=== PATIENT | female | born 1975 | race Caucasian/White ===

== ENCOUNTER → 2018-04-25 | Outpatient (CLI) | payer BC ==
[2018-04-25 13:15] LABS: BASO # 0.1 10^3/uL (0.0-0.2); EOS # 0.2 10^3/uL (0.0-0.50); EOS % 2.8 % (0.0-3.0); HEMATOCRIT 39.5 % (36.0-47.0); HEMOGLOBIN 12.9 g/dl (12.0-15.5); IMMATURE GRANULOCYTE % 0.3 % (0-3.0); LYMPH # 1.7 10^3/uL (1.5-4.5); LYMPH % 28.7 % (24.0-44.0); MEAN CORPUSCULAR HEMOGLOBIN 29.8 pg (27.0-33.0); MEAN CORPUSCULAR HGB CONC 32.7 g/dl (32.0-36.5); MEAN CORPUSCULAR VOLUME 91.2 fl (80.0-96.0); MONO # 0.3 10^3/uL (0.0-0.8); MONO % 5.9 % (0.0-5.0); NEUTROPHILS # 3.6 10^3/uL (1.8-7.7); NEUTROPHILS % 61.3 % (36.0-66.0); PLATELET COUNT, AUTOMATED 262 10^3/uL (150-450); RED BLOOD COUNT 4.33 10^6/uL (4.00-5.40); RED CELL DISTRIBUTION WIDTH 12.9 % (11.5-14.5); WHITE BLOOD COUNT 5.8 10^3/uL (4.0-10.0)
[2018-04-25 13:35] LABS: CHOLESTEROL LEVEL 166 MG/DL (<200); CHOLESTEROL RISK RATIO 3.608 (<5); GLUCOSE, FASTING 77 MG/DL (70-100); HDL CHOLESTEROL 46 MG/DL (>40); LDL CHOLESTEROL 107 MG/DL (<100); NON-HDL-C 120 MG/DL; TRIGLYCERIDES LEVEL 65 MG/DL (<150)
== END ==
LOC: M WUC 09:26
DX: E78.5 Hyperlipidemia, unspecified (principal)
CPT/HCPCS: 82947

== ENCOUNTER → 2018-05-23 | Outpatient (CLI) | payer BC ==
[2018-05-23 12:53] LABS: FERRITIN 55 NG/ML (8-252); IRON (FE) 65 UG/DL (50-170); PERCENT SATURATION 25.5 % (13.2-45.0); TOTAL IRON BINDING CAPACITY 255 UG/DL (250-450)
[2018-05-23 13:00] LABS: AMORPHOUS SEDIMENT SMALL (NEGATIVE); APPEARANCE, URINE CLEAR (CLEAR); BACTERIA, URINE AUTO NEGATIVE (NEGATIVE); BILIRUBIN, URINE AUTO NEGATIVE (NEGATIVE); BLOOD, URINE BLOOD NEGATIVE (NEGATIVE); COLOR, URINE YELLOW (YELLOW); GLUCOSE, URINE (UA) AUTO NEGATIVE (NEGATIVE); KETONE, URINE AUTO NEGATIVE (NEGATIVE); LEUKOCYTE ESTERASE, URINE AUTO NEGATIVE (NEGATIVE); NITRITE, URINE AUTO NEGATIVE (NEGATIVE); PROTEIN, URINE AUTO NEGATIVE (NEGATIVE); RBC, URINE AUTO 0 /HPF (0-3); SPECIFIC GRAVITY URINE AUTO 1.014 (1.002-1.035); SQUAMOUS EPITHELIAL CELL UR AU 0 /HPF (0-6); UROBILINOGEN, URINE AUTO 0.2 mg/dL (0.0-2.0); WBC, URINE AUTO 0 /HPF (0-3)
[2018-05-23 13:02] LABS: TOTAL 25(OH) VITAMIN D 27.8 NG/ML (30.0-100.0)
[2018-05-23 13:03] LABS: VITAMIN B12 LEVEL 461 PG/ML (247-911)
== END ==
LOC: M WUC 08:43
DX: R53.83 Other fatigue (principal); N30.00 Acute cystitis without hematuria
CPT/HCPCS: 83550

== ENCOUNTER → 2018-06-29 | Outpatient (REF) | payer BC | LOC: M SFHCLACO 15:43 | PROVIDERS: ATTEND Physician Assistant | DX: D18.01 Hemangioma of skin and subcutaneous tissue (principal) ==

== ENCOUNTER → 2018-11-19 | Outpatient (CLI) | payer BC ==
--- NOTE | 2018-11-24 09:28 | REPMRS ---
Patient History The patient states she has not had a clinical breast exam in over a year. Patient has history of cervical cancer at age 38. No known family history of cancer. Digital Woman Screen Mammo: November 19, 2018 - Exam #: [id number] Bilateral CC and MLO view(s) were taken. Technologist: Essie Khan, Technologist Prior study comparison: 2017, bilateral digital mammo screening bilat, performed at [facility]. June 15, 2016, bilateral digital woman screen mammo, performed at [facility]. FINDINGS: There are scattered fibroglandular densities. There has been no change in the appearance of the mammogram from the prior studies. There is a mild amount of scattered fibroglandular density which is fairly symmetric. There is no interval development of dominant mass, architectural distortion, or clustered microcalcification suggestive of malignancy. 3-D tomosynthesis shows no additional findings. Assessment: BI-RADS/ACR category 1 mammogram. Negative Mammogram. Recommendation Routine screening mammogram of both breasts in 1 year (for women over age 40). This patient's Lifetime Breast Cancer RIsk is estimated at 8.4 %. This mammogram was interpreted with the aid of an FDA-approved computer-aided dectection system. Electronically Signed By: Quinten Bailon MD 11/24/18 0950
== END ==
LOC: M WHC 10:22
PROVIDERS: ATTEND Physician Assistant
DX: Z12.31 Encounter for screening mammogram for malignant neoplasm of breast (principal); Z85.40 Personal history of malignant neoplasm of unspecified female genital organ

== ENCOUNTER → 2019-05-16 | Outpatient (CLI) | payer BC ==
[2019-05-16 13:12] LABS: CHOLESTEROL RISK RATIO 4.075 (<5)
== END ==
LOC: M WUC 09:09
PROVIDERS: ATTEND Physician Assistant
DX: Z02.1 Encounter for pre-employment examination (principal)

== ENCOUNTER 2020-07-15 06:54 | Emergency (ER) | payer OTHER ==
[~2020-07-15] VITALS: Ht 167.6 cm; Wt 72.7 kg
[2020-07-15] MEDS ORDERED: ZOFR4TAB16 PO (07:11)
[2020-07-15] MEDS ORDERED: COQ-100C5 PO (07:11)
[2020-07-15] MEDS ORDERED: CBD OIL (07:11)
[2020-07-15] MEDS ORDERED: BUPR10DI3 TOP (07:11)
[2020-07-15] MEDS ORDERED: VITA100T59 PO (07:11)
[2020-07-15] MEDS ORDERED: FISH1000 PO (07:11)
[2020-07-15] MEDS ORDERED: TOPI50TA9 PO (07:11)
[2020-07-15] MEDS ORDERED: RA B1TAB7 PO (07:11)
[2020-07-15] MEDS ORDERED: SUMA100T2 PO (07:11)
[2020-07-15] MEDS ORDERED: ACET-838 PO (07:11)
[2020-07-15] MEDS ORDERED: TOPA100T12 PO (07:11)
[2020-07-15] MEDS ORDERED: METOCLOPRAMIDE INJ 10MG/2ML VIAL (J2765 PER 1) As Ordered ONE (07:29)
[2020-07-15] MEDS ORDERED: METOCLOPRAMIDE INJ 10MG/2ML VIAL (J2765 PER 1) IV ONE (07:30)
[2020-07-15] MEDS ORDERED: NS 1,000 ML IV ONE (07:30)
[2020-07-15] MEDS ORDERED: ONDANSETRON 4MG/2ML VIAL IV ONE (07:30)
--- NOTE | 2020-07-15 08:00 | REP ---
INDICATION: seizure. COMPARISON: None. TECHNIQUE: Helical scanning is acquired. 5 mm axial images were reformatted. Coronal MPR images were generated. FINDINGS: Bone window settings demonstrate an intact bony calvarium. There is no evidence of skull fracture or incidental bony calvarial lesion. The visualized paranasal sinuses appear clear. No intraorbital abnormality is seen. On soft tissue window setting images; the lateral, third, and fourth ventricles are normal in size and position. Sage-white differentiation pattern is normal above and below the tentorium. There are is no evidence of intracranial hemorrhage. No mass, edema, infarction, or midline shift is seen. No extra-axial fluid collection is appreciated. IMPRESSION: Negative noncontrast head CT. <Electronically signed by Quinten Bailon > 07/15/20 [id number]
[2020-07-15 08:12] LABS: BASO % 0.6 % (0.0-1.0); EOS # 0.1 10^3/uL (0.0-0.5); EOS % 1.2 % (0.0-3.0); HEMATOCRIT 38.7 % (36.0-47.0); HEMOGLOBIN 12.3 g/dl (12.0-15.5); LYMPH # 1.5 10^3/uL (1.5-5.0); LYMPH % 23.5 % (24.0-44.0); MEAN CORPUSCULAR HEMOGLOBIN 28.9 pg (27.0-33.0); MEAN CORPUSCULAR HGB CONC 31.8 g/dl (32.0-36.5); MEAN CORPUSCULAR VOLUME 91.1 fl (80.0-96.0); MONO # 0.3 10^3/uL (0.0-0.8); MONO % 4.1 % (0.0-5.0); NEUTROPHILS # 4.6 10^3/uL (1.5-8.5); PLATELET COUNT, AUTOMATED 227 10^3/uL (150-450); RED BLOOD COUNT 4.25 10^6/uL (4.00-5.40); WHITE BLOOD COUNT 6.5 10^3/uL (4.0-10.0)
[2020-07-15 08:42] LABS: ALBUMIN 3.4 GM/DL (3.2-5.2); ALT/SGPT 11 U/L (12-78); BILIRUBIN,DIRECT < 0.1 MG/DL (0.0-0.2); BILIRUBIN,TOTAL 0.3 MG/DL (0.2-1.0); BLOOD UREA NITROGEN 13 MG/DL (7-18); CALCIUM LEVEL 7.9 MG/DL (8.5-10.1); CARBON DIOXIDE LEVEL 22 MEQ/L (21-32); CHLORIDE LEVEL 112 MEQ/L (98-107); CK-MB VALUE MASS < 1.0 NG/ML (<3.6); CPK CREATINE PHOSPHOKINASE 94 U/L (26-192); CREATININE FOR GFR 0.65 MG/DL (0.55-1.30); ETHYL ALCOHOL (ETHANOL) 0.004 % (0.000-0.010); GLOMERULAR FILTRATION RATE > 60.0 (>58); GLUCOSE, FASTING 118 MG/DL (70-100); MB/CK RELATIVE INDEX 1.06 (< OR =4); POTASSIUM SERUM 3.8 MEQ/L (3.5-5.1); SODIUM LEVEL 142 MEQ/L (136-145); TOTAL PROTEIN 5.7 GM/DL (6.4-8.2); TROPONIN I < 0.02 NG/ML (< 0.10)
[2020-07-15 08:59] LABS: AMPHETAMINES LEVEL URINE NEGATIVE (NEGATIVE); BARBITURATES URINE NEGATIVE (NEGATIVE); BENZODIAZEPINES URINE NEGATIVE (NEGATIVE); CANNABINOIDS URINE POSITIVE (NEGATIVE); COCAINE METABOLITE URINE NEGATIVE (NEGATIVE); METHADONE URINE NEGATIVE (NEGATIVE); OPIATES URINE NEGATIVE (NEGATIVE); PHENCYCLIDINE URINE NEGATIVE (NEGATIVE)
[2020-07-15 09:27] LABS: HCG, SERUM QUALITATIVE NEGATIVE (NEGATIVE)
[2020-07-15 09:31] LABS: OSMOLALITY SERUM 293 MOSM/KG (275-295)
--- NOTE | 2020-07-15 09:56 | REP ---
INDICATION: Altered Mental Status COMPARISON: None. TECHNIQUE: Portable AP view of the chest FINDINGS: The mediastinum and cardiac silhouette are within normal limits for portable technique. The lung dixon are clear without acute consolidation, effusion, or pneumothorax. Skeletal structures are intact. IMPRESSION: No acute cardiopulmonary process appreciated. <Electronically signed by Lazaro Dillon > 07/15/20 0959
[2020-07-15 13:01] VITALS: BP 123/76
--- NOTE | 2020-07-16 13:27 | ECGEPIP ---
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
== END 2020-07-15 13:15 | disposition home or self-care (01) ==
LOC: M ED 06:54
DX: R56.9 Unspecified convulsions (principal); T50.995A Adverse effect of other drugs, medicaments and biological substances, initial encounter; X58.XXXA Exposure to other specified factors, initial encounter; Y92.89 Other specified places as the place of occurrence of the external cause; Z79.899 Other long term (current) drug therapy; Z88.8 Allergy status to other drugs, medicaments and biological substances; Z87.891 Personal history of nicotine dependence
CPT/HCPCS: 70450; 71045; 80048; 80076; 80307; 82550; 82553; 83605; 83930; 84443; 84484; 84703; 85025; 93005; 93041; 94760; 96361; 96374; 96375; 99285; G0480; J2765

== ENCOUNTER → 2020-11-25 | Outpatient (REF) | payer OTHER ==
[~2020-11-25] MED LIST: ACET32TAB PO; BUPR10DI3 TOP; CBD OIL; COQ-100C5 PO; FISH1000 PO; RA B1TAB7 PO; SUMA100T2 PO; TOPA100T12 PO; TOPI50TA9 PO; VITA100T59 PO; ZOFR4TAB16 PO
[2020-11-25 13:08] LABS: HEMATOCRIT 43.4 % (36.0-47.0); HEMOGLOBIN 13.9 g/dl (12.0-15.5); MEAN CORPUSCULAR HEMOGLOBIN 29.6 pg (27.0-33.0); MEAN CORPUSCULAR VOLUME 92.5 fl (80.0-96.0); PLATELET COUNT, AUTOMATED 290 10^3/uL (150-450); RED BLOOD COUNT 4.69 10^6/uL (4.00-5.40); WHITE BLOOD COUNT 5.4 10^3/uL (4.0-10.0)
[2020-11-25 14:20] LABS: BLOOD UREA NITROGEN 11 MG/DL (7-18); CALCIUM LEVEL 9.4 MG/DL (8.5-10.1); CARBON DIOXIDE LEVEL 25 MEQ/L (21-32); CHLORIDE LEVEL 109 MEQ/L (98-107); CREATININE FOR GFR 0.54 MG/DL (0.55-1.30); GLOMERULAR FILTRATION RATE > 60.0 (>58); GLUCOSE, FASTING 69 MG/DL (70-100); POTASSIUM SERUM 4.4 MEQ/L (3.5-5.1); SODIUM LEVEL 142 MEQ/L (136-145); TOTAL 25(OH) VITAMIN D 25.2 NG/ML (30.0-100.0)
== END ==
LOC: M SFHCADAM 09:40
PROVIDERS: ATTEND Physician Assistant
DX: G43.109 Migraine with aura, not intractable, without status migrainosus (principal); E55.9 Vitamin D deficiency, unspecified

== ENCOUNTER → 2021-01-29 | Outpatient (CLI) | payer OTHER ==
--- NOTE | 2021-01-29 14:22 | REPMRS ---
Patient History The patient states she has not had a clinical breast exam in over a year. No known family history of cancer. Patient states no breast complaints today. Patient has signed MRS History Sheet. Digital Woman Screen Mammo: January 29, 2021 - Exam #: [id number] Bilateral CC and MLO view(s) were taken. Technologist: Essie Khan, Technologist Prior study comparison: November 19, 2018, bilateral digital woman screen mammo performed at [facility]. 2018, bilateral digital mammo screening bilat, performed at [facility]. FINDINGS: There are scattered fibroglandular densities. Screening. Digital screening (2D) mammography was performed bilaterally in the CC and MLO projections. Additionally, breast tomosynthesis (3D mammography) was performed bilaterally in the CC and MLO projections. Todays exam was compared to the prior exam/exams. By history, the patient has no complaints of a palpable breast abnormality or other significant breast complaints. The breasts are unchanged in size and shape. There are no jay-soft tissue densities or spiculated masses. There is no internal architectural distortion. There are no suspicious jay-calcific clusters. Skin thickening or nipple retraction is not present. IMPRESSION: BI-RADS Category 1-negative. There is no evidence of malignant alteration of the breasts. Followup examination recommended in one year. The Volpara volumetric breast density category is B, there are scattered areas of fibroglandular densities. This mammogram was read with the assistance of [employer],an FDA approved computer aided detection system for mammography. The lifetime Tyrer-Cuzick score is 8.1 % Negative x-ray reports should not delay surgical consultation if a dominant or clinically suspicious mass is present. Not all breast cancers can be identified by mammography. Therefore, we recommend that you continue to perform regular breast self-examination and physical examination and then promptly contact your physician of any concerns or changes. Adenosis and dense breasts may obscure an underlying neoplasm. Assessment: BI-RADS/ACR category 1 mammogram. Negative Mammogram. Recommendation Routine screening mammogram of both breasts in 1 year. Electronically Signed By: Mohinder Holguin DO 01/29/21 [id number]
== END ==
LOC: M WHC 13:43
PROVIDERS: ATTEND Physician Assistant
DX: Z12.31 Encounter for screening mammogram for malignant neoplasm of breast (principal)

== ENCOUNTER 2021-02-20 22:20 | Emergency (ER) | payer OTHER ==
[2021-02-20 22:52] LABS: EOS # 0.1 10^3/uL (0.0-0.5); EOS % 1.9 % (0.0-3.0); HEMATOCRIT 39.4 % (36.0-47.0); HEMOGLOBIN 13.2 g/dl (12.0-15.5); LYMPH # 1.4 10^3/uL (1.5-5.0); LYMPH % 33.5 % (24.0-44.0); MEAN CORPUSCULAR HEMOGLOBIN 29.8 pg (27.0-33.0); MEAN CORPUSCULAR HGB CONC 33.5 g/dl (32.0-36.5); MEAN CORPUSCULAR VOLUME 88.9 fl (80.0-96.0); MONO # 0.2 10^3/uL (0.0-0.8); MONO % 4.5 % (2.0-8.0); NEUTROPHILS # 2.5 10^3/uL (1.5-8.5); NEUTROPHILS % 58.6 % (36.0-66.0); PLATELET COUNT, AUTOMATED 257 10^3/uL (150-450); RED BLOOD COUNT 4.43 10^6/uL (4.00-5.40); WHITE BLOOD COUNT 4.2 10^3/uL (4.0-10.0)
[2021-02-20 23:16] LABS: ALBUMIN 3.7 GM/DL (3.2-5.2); ALT/SGPT 18 U/L (12-78); AMYLASE 56 U/L (25-115); BILIRUBIN,DIRECT < 0.1 MG/DL (0.0-0.2); BILIRUBIN,TOTAL 0.3 MG/DL (0.2-1.0); LIPASE 86 U/L (73-393); TOTAL PROTEIN 6.5 GM/DL (6.4-8.2)
[2021-02-20] MEDS ORDERED: MAG SULF 1GM/100ML (MAG RUN) 1 GM in IV 1 EA IV ONE (23:45)
[2021-02-20] MEDS ORDERED: POTASSIUM CHLORIDE 10 MEQ SR TABLET PO ONE (23:45)
[2021-02-21 00:19] LABS: MAGNESIUM LEVEL 2.2 MG/DL (1.8-2.4)
[2021-02-21] MEDS: POTASSIUM CHLORIDE 10 MEQ SR TABLET PO SCH ×3 (00:57→02:23)
[2021-02-21] MEDS ORDERED: MAG SULF 1GM/100ML (MAG RUN) 1 GM in IV 1 EA IV ONE (01:00)
[2021-02-21 01:45] VITALS: BP 129/78
[2021-02-21] MEDS ORDERED: RIZATRIPTAN MLT 10 MG TAB PO PRN (01:45)
[2021-02-21] MEDS ORDERED: ONDANSETRON 4MG/2ML VIAL IV ONE (01:45)
[2021-02-21] MEDS ORDERED: POTA1TAB14 PO (02:01)
== END 2021-02-21 03:09 | disposition home or self-care (01) ==
LOC: M ED 22:20
DX: E87.6 Hypokalemia (principal); G43.909 Migraine, unspecified, not intractable, without status migrainosus; K52.9 Noninfective gastroenteritis and colitis, unspecified; I10 Essential (primary) hypertension; K21.9 Gastro-esophageal reflux disease without esophagitis; Z88.8 Allergy status to other drugs, medicaments and biological substances; Z79.899 Other long term (current) drug therapy
CPT/HCPCS: 80047; 80076; 82150; 83605; 83690; 83735; 85025; 93041; 96365; 96375; 99285; J2405; J3475

== ENCOUNTER → 2021-02-23 | Outpatient (REF) | payer OTHER ==
[~2021-02-23] MED LIST changes: +POTA1TAB14 PO
[2021-02-23 17:45] LABS: BLOOD UREA NITROGEN 10 MG/DL (7-18); CALCIUM LEVEL 8.6 MG/DL (8.5-10.1); CARBON DIOXIDE LEVEL 28 MEQ/L (21-32); CHLORIDE LEVEL 109 MEQ/L (98-107); CREATININE FOR GFR 0.61 MG/DL (0.55-1.30); GLOMERULAR FILTRATION RATE > 60.0 (>58); GLUCOSE, FASTING 74 MG/DL (70-100); POTASSIUM SERUM 4.2 MEQ/L (3.5-5.1); SODIUM LEVEL 143 MEQ/L (136-145)
== END ==
LOC: M SFHCADAM 14:57
PROVIDERS: ATTEND Physician Assistant
DX: E87.6 Hypokalemia (principal)

== ENCOUNTER → 2021-05-12 | Outpatient (CLI) | payer OTHER, MEDICARE ==
--- NOTE | 2021-05-13 14:49 | REP ---
INDICATION: HEPATIC LESION. COMPARISON: MRI lumbar spine 04/07/2021. TECHNIQUE: Real-time sonographic evaluation of right upper quadrant performed. FINDINGS: The gallbladder demonstrates no evidence of intraluminal sludge or calculi, wall thickening or pericholecystic fluid. There is no intrahepatic or extrahepatic biliary dilatation, common bile duct measures 4 mm in maximum diameter. At the site of the hyperintense nodule on T2 weighted images of the lumbar spine there is a 1.1 cm cyst. 2 cysts are also seen more superiorly near the confluence of the hepatic veins 1.3 x 1.4 x 1.2 cm and adjacent to the right hepatic vein, 1.1 cm in diameter. The pancreas demonstrates homogeneous echotexture with no gross mass. The right kidney demonstrates no hydronephrosis, with a normal size of 12.1 cm in length. No free fluid is seen. IMPRESSION: Three liver cysts are identified, 1 of which corresponds to the abnormality seen on the prior lumbar spine MRI. <Electronically signed by Jagdeep Sage > 05/13/21 [id number]
== END ==
LOC: M RAD 08:41
PROVIDERS: ATTEND Physician Assistant
DX: K76.9 Liver disease, unspecified (principal)

== ENCOUNTER → 2021-05-21 | Outpatient (REF) | payer OTHER, MEDICARE ==
[2021-05-21 17:37] LABS: APPEARANCE, URINE CLEAR (CLEAR); BACTERIA, URINE AUTO 1+ (NEGATIVE); BILIRUBIN, URINE AUTO NEGATIVE (NEGATIVE); BLOOD, URINE BLOOD NEGATIVE (NEGATIVE); COLOR, URINE STRAW (YELLOW); GLUCOSE, URINE (UA) AUTO NEGATIVE (NEGATIVE); KETONE, URINE AUTO NEGATIVE (NEGATIVE); LEUKOCYTE ESTERASE, URINE AUTO NEGATIVE (NEGATIVE); NITRITE, URINE AUTO NEGATIVE (NEGATIVE); PROTEIN, URINE AUTO NEGATIVE (NEGATIVE); RBC, URINE AUTO 0 /HPF (0-3); SPECIFIC GRAVITY URINE AUTO 1.002 (1.002-1.035); SQUAMOUS EPITHELIAL CELL UR AU 1 /HPF (0-6); UROBILINOGEN, URINE AUTO 0.2 mg/dL (0.0-2.0); WBC, URINE AUTO 0 /HPF (0-3)
== END ==
LOC: M LAB REF 16:35
PROVIDERS: ATTEND Obstetrics & Gynecology
DX: N39.41 Urge incontinence (principal); N39.0 Urinary tract infection, site not specified

== ENCOUNTER → 2021-05-28 | Outpatient (REF) | payer OTHER, MEDICARE | LOC: M LAB REF 13:59 | PROVIDERS: ATTEND Dermatology | DX: L72.0 Epidermal cyst (principal) ==

== ENCOUNTER → 2021-06-19 | Outpatient (CLI) | payer OTHER, MEDICARE ==
[~2021-06-19] MED LIST changes: +FREM225A SC; +GNP250TA9 PO; +HAIR1CHW2 PO; +RA T500C2 PO; +VIBE75TA PO; +[UNRECOGNIZED DRUG - REMARK] PA
== END ==
LOC: M LABSMTC 10:13
PROVIDERS: ATTEND Anesthesiology
DX: Z01.818 Encounter for other preprocedural examination (principal); Z11.52 Encounter for screening for COVID-19

== ENCOUNTER 2021-06-24 09:25 | Day surgery (SDC) | payer OTHER, MEDICARE ==
[~2021-06-24] VITALS: Ht 167.6 cm; Wt 84.3 kg
[~2021-06-24 09:25] MED LIST changes: +LIDOCAINE 1% MDV 20ML VIAL SQ PRN; +LR 1,000 ML IV ONE
[2021-06-24] MEDS ORDERED: propofoL 200 MG/20 ML VIAL As Ordered ONE (11:05)
[2021-06-24] MEDS ORDERED: dexameTHASONE 4 MG/ML 1ML VIAL (J1100 PER 1MG) As Ordered ONE (11:05)
[2021-06-24] MEDS ORDERED: KETOROLAC 60MG 2ML VIAL As Ordered ONE (11:05)
[2021-06-24] MEDS ORDERED: LIDOCAINE 2% 100MG/5ML SDV (FOR ANES.) As Ordered ONE (11:05)
[2021-06-24] MEDS ORDERED: MIDAZOLAM INJ 2MG/2ML VIAL (J2250 PER 1MG) As Ordered ONE (11:05)
[2021-06-24] MEDS ORDERED: ONDANSETRON 4MG/2ML VIAL As Ordered ONE (11:05)
[2021-06-24] MEDS ORDERED: fentaNYL 100 MCG/2 ML INJECTION As Ordered ONE (11:05)
[2021-06-24] MEDS ORDERED: GLYCOPYRROLATE INJ 0.2 MG/ML 2 ML VIAL As Ordered ONE (11:06)
[2021-06-24] MEDS ORDERED: PHENYLephrine 500MCG 5ML (100MCG/ML) SYRINGE As Ordered ONE (11:12)
[2021-06-24] MEDS ORDERED: fentaNYL 100 MCG/2 ML INJECTION IV PRN (11:55)
[2021-06-24] MEDS ORDERED: LR 1,000 ML IV SCH ×2 (11:55→12:00)
[2021-06-24] MEDS ORDERED: oxyCODONE 5MG TAB PO PRN (11:55)
[2021-06-24] MEDS ORDERED: ONDANSETRON 4MG/2ML VIAL IV PRN (11:55)
[2021-06-24] MEDS ORDERED: METOCLOPRAMIDE INJ 10MG/2ML VIAL (J2765 PER 1) IV PRN (11:55)
[2021-06-24] MEDS ORDERED: IBUPROFEN 600MG TAB PO PRN (12:00)
[2021-06-24 12:34] VITALS: BP 122/64
== END 2021-06-24 13:00 | disposition home or self-care (01) ==
LOC: M SDC 09:25
PROVIDERS: ATTEND Obstetrics & Gynecology
DX: R39.89 Other symptoms and signs involving the genitourinary system (principal); Z87.440 Personal history of urinary (tract) infections; Z87.448 Personal history of other diseases of urinary system; R01.1 Cardiac murmur, unspecified; I49.8 Other specified cardiac arrhythmias; K58.9 Irritable bowel syndrome, unspecified; Z98.890 Other specified postprocedural states; F41.9 Anxiety disorder, unspecified; R56.9 Unspecified convulsions; R32 Unspecified urinary incontinence; M54.9 Dorsalgia, unspecified; Z88.8 Allergy status to other drugs, medicaments and biological substances; Z88.5 Allergy status to narcotic agent; Z79.899 Other long term (current) drug therapy
CPT/HCPCS: 52000; J1100; J1885; J2250; J2370; J2405; J3010

== ENCOUNTER → 2021-11-11 | Outpatient (CLI) | payer OTHER, MEDICARE ==
[~2021-11-11] MED LIST changes: -LIDOCAINE 1% MDV 20ML VIAL SQ PRN; -LR 1,000 ML IV ONE
[2021-11-11 12:46] LABS: HEMATOCRIT 41.7 % (36.0-47.0); MEAN CORPUSCULAR HEMOGLOBIN 29.9 pg (27.0-33.0); MEAN CORPUSCULAR HGB CONC 33.6 g/dl (32.0-36.5); MEAN CORPUSCULAR VOLUME 89.1 fl (80.0-96.0); PLATELET COUNT, AUTOMATED 279 10^3/uL (150-450); RED BLOOD COUNT 4.68 10^6/uL (4.00-5.40); WHITE BLOOD COUNT 6.1 10^3/uL (4.0-10.0)
[2021-11-11 12:55] LABS: INR 0.98; PROTHROMBIN TIME 13.4 SECONDS (12.7-14.5)
[2021-11-11 12:56] LABS: PARTIAL THROMBOPLASTIN TIME 30.7 SECONDS (25.9-37.0)
[2021-11-11 13:13] LABS: ALBUMIN 3.9 GM/DL (3.2-5.2); ALT/SGPT 27 U/L (12-78); BILIRUBIN,TOTAL 0.3 MG/DL (0.2-1.0); BLOOD UREA NITROGEN 13 MG/DL (7-18); CALCIUM LEVEL 9.5 MG/DL (8.5-10.1); CARBON DIOXIDE LEVEL 25 MEQ/L (21-32); CHLORIDE LEVEL 109 MEQ/L (98-107); CREATININE FOR GFR 0.56 MG/DL (0.55-1.30); GLOMERULAR FILTRATION RATE > 60.0 (>58); GLUCOSE, FASTING 82 MG/DL (70-100); POTASSIUM SERUM 4.2 MEQ/L (3.5-5.1); SODIUM LEVEL 140 MEQ/L (136-145); TOTAL PROTEIN 6.7 GM/DL (6.4-8.2)
== END ==
LOC: M WUC 10:07
PROVIDERS: ATTEND Physician Assistant
DX: R04.0 Epistaxis (principal)

== ENCOUNTER → 2022-01-12 | Outpatient (CLI) | payer MEDICARE, BC ==
[2022-01-12 13:10] LABS: BLOOD UREA NITROGEN 13 MG/DL (7-18); CARBON DIOXIDE LEVEL 23 MEQ/L (21-32); CHLORIDE LEVEL 111 MEQ/L (98-107); CREATININE FOR GFR 0.62 MG/DL (0.55-1.30); GLOMERULAR FILTRATION RATE > 60.0 (>58); GLUCOSE, FASTING 87 MG/DL (70-100); MAGNESIUM LEVEL 2.2 MG/DL (1.8-2.4); POTASSIUM SERUM 4.1 MEQ/L (3.5-5.1); SODIUM LEVEL 139 MEQ/L (136-145)
== END ==
LOC: M WUC 09:10
PROVIDERS: ATTEND Physician Assistant
DX: R00.2 Palpitations (principal)

== ENCOUNTER → 2022-02-18 | Outpatient (CLI) | payer MEDICARE, BC ==
[2022-02-18 11:36] LABS: BASO % 0.6 % (0.0-1.0); EOS # 0.2 10^3/uL (0.0-0.5); EOS % 2.5 % (0.0-3.0); HEMATOCRIT 43.7 % (36.0-47.0); HEMOGLOBIN 14.2 g/dl (12.0-15.5); LYMPH # 1.8 10^3/uL (1.5-5.0); LYMPH % 27.2 % (24.0-44.0); MEAN CORPUSCULAR HEMOGLOBIN 29.3 pg (27.0-33.0); MEAN CORPUSCULAR HGB CONC 32.5 g/dl (32.0-36.5); MEAN CORPUSCULAR VOLUME 90.1 fl (80.0-96.0); MONO # 0.3 10^3/uL (0.0-0.8); MONO % 5.2 % (2.0-8.0); NEUTROPHILS # 4.2 10^3/uL (1.5-8.5); NEUTROPHILS % 64.2 % (36.0-66.0); PLATELET COUNT, AUTOMATED 284 10^3/uL (150-450); RED BLOOD COUNT 4.85 10^6/uL (4.00-5.40); WHITE BLOOD COUNT 6.5 10^3/uL (4.0-10.0)
[2022-02-18 12:03] LABS: HEMOGLOBIN A1c 5.3 %
[2022-02-18 13:28] LABS: ALBUMIN 3.6 GM/DL (3.2-5.2); ALT/SGPT 20 U/L (12-78); BILIRUBIN,TOTAL 0.4 MG/DL (0.2-1.0); BLOOD UREA NITROGEN 12 MG/DL (7-18); CALCIUM LEVEL 8.8 MG/DL (8.5-10.1); CARBON DIOXIDE LEVEL 28 MEQ/L (21-32); CHLORIDE LEVEL 108 MEQ/L (98-107); CHOLESTEROL LEVEL 204 MG/DL (<200); CHOLESTEROL RISK RATIO 4.975 (<5); CREATININE FOR GFR 0.67 MG/DL (0.55-1.30); FREE T4 0.84 NG/DL (0.76-1.46); GLOMERULAR FILTRATION RATE > 60.0 (>58); GLUCOSE, FASTING 83 MG/DL (70-100); HDL CHOLESTEROL 41 MG/DL (>40); LDL CHOLESTEROL 145 MG/DL (<100); NON-HDL-C 163 MG/DL; POTASSIUM SERUM 4.5 MEQ/L (3.5-5.1); SODIUM LEVEL 140 MEQ/L (136-145); TOTAL PROTEIN 6.8 GM/DL (6.4-8.2); TRIGLYCERIDES LEVEL 92 MG/DL (<150)
== END ==
LOC: M WUC 08:05
PROVIDERS: ATTEND Family Medicine
DX: Z00.00 Encounter for general adult medical examination without abnormal findings (principal); R79.89 Other specified abnormal findings of blood chemistry; E07.9 Disorder of thyroid, unspecified

== ENCOUNTER → 2022-03-03 | Outpatient (CLI) | payer BC, MEDICARE | LOC: M WHC 06:56 | PROVIDERS: ATTEND Family Medicine | DX: Z12.31 Encounter for screening mammogram for malignant neoplasm of breast (principal) ==

== ENCOUNTER → 2022-05-05 | Outpatient (REF) | payer BC, MEDICARE ==
[2022-05-05 14:34] LABS: FREE T4 0.92 NG/DL (0.76-1.46); THYROID STIMULATING HORMONE 2.27 uIU/ML (0.358-3.740)
== END ==
LOC: M SFHCADAM 08:06
PROVIDERS: ATTEND Family Medicine
DX: F41.8 Other specified anxiety disorders (principal)

== ENCOUNTER → 2022-11-15 | Outpatient (REF) | payer BC, MEDICARE ==
[~2022-11-15] MED LIST changes: +POTA-298 PO; -POTA1TAB14 PO; +TOPI-254 PO; -TOPI50TA9 PO
[2022-11-15 14:11] LABS: FREE T4 0.95 NG/DL (0.89-1.76); THYROID STIMULATING HORMONE 2.377 uIU/ML (0.55-4.78)
== END ==
LOC: M SFHCADAM 11:01
PROVIDERS: ATTEND Family Medicine
DX: F41.9 Anxiety disorder, unspecified (principal)

== ENCOUNTER → 2023-08-23 | Outpatient (CLI) | payer BC, MEDICARE ==
[~2023-08-23] MED LIST changes: +TOPI-21 PO; -TOPI-254 PO
== END ==
LOC: M WHC 07:10
PROVIDERS: ATTEND Nurse Practitioner Family
DX: Z12.31 Encounter for screening mammogram for malignant neoplasm of breast (principal)

== ENCOUNTER → 2023-08-23 | Outpatient (REF) | payer BC, MEDICARE | LOC: M SFHCWAGY 13:18 | PROVIDERS: ATTEND Nurse Practitioner Family | DX: Z12.4 Encounter for screening for malignant neoplasm of cervix (principal) ==

== ENCOUNTER 2023-11-22 08:03 | Day surgery (SDC) | payer BC, MEDICARE ==
[~2023-11-22] VITALS: Ht 167.6 cm; Wt 77.4 kg
[~2023-11-22 08:03] MED LIST changes: +CITA20TA7 PO; +FOLI400T5 PO; +LEVO25TA5 PO; +MAGN400C PO; +OMEG12004 PO; +PROBCAP2 PO; +VITA500075 PO
[2023-11-22] MEDS: NS 1,000 ML IV ONE (08:19)
[2023-11-22 10:12] VITALS: BP 125/71; TEMP 97.3; O2SAT 98
== END 2023-11-22 10:15 | disposition home or self-care (01) ==
LOC: M OPP 08:03
PROVIDERS: ATTEND Surgery
DX: Z12.11 Encounter for screening for malignant neoplasm of colon (principal); Z12.12 Encounter for screening for malignant neoplasm of rectum; K64.1 Second degree hemorrhoids; Q43.8 Other specified congenital malformations of intestine; E03.9 Hypothyroidism, unspecified; K58.9 Irritable bowel syndrome, unspecified; K76.89 Other specified diseases of liver; Z90.49 Acquired absence of other specified parts of digestive tract; Z79.890 Hormone replacement therapy; Z79.899 Other long term (current) drug therapy; Z88.8 Allergy status to other drugs, medicaments and biological substances; Z87.891 Personal history of nicotine dependence; Z90.710 Acquired absence of both cervix and uterus

== ENCOUNTER → 2024-06-18 | Outpatient (REF) | payer BC, MEDICARE ==
[2024-06-18 13:42] LABS: BASO # 0.1 10^3/uL (0.0-0.2); BASO % 0.9 % (0.0-1.0); EOS # 0.2 10^3/uL (0.0-0.5); EOS % 3.2 % (0.0-3.0); HEMATOCRIT 45.6 % (36.0-47.0); HEMOGLOBIN 14.9 g/dl (12.0-15.5); LYMPH # 1.6 10^3/uL (1.5-5.0); LYMPH % 24.6 % (24.0-44.0); MEAN CORPUSCULAR HEMOGLOBIN 29.9 pg (27.0-33.0); MEAN CORPUSCULAR HGB CONC 32.7 g/dl (32.0-36.5); MEAN CORPUSCULAR VOLUME 91.6 fl (80.0-96.0); MONO # 0.5 10^3/uL (0.0-0.8); MONO % 7.4 % (2.0-8.0); NEUTROPHILS # 4.1 10^3/uL (1.5-8.5); NEUTROPHILS % 63.6 % (36.0-66.0); PLATELET COUNT, AUTOMATED 299 10^3/uL (150-450); RED BLOOD COUNT 4.98 10^6/uL (4.00-5.40); WHITE BLOOD COUNT 6.5 10^3/uL (4.0-10.0)
[2024-06-18 13:52] LABS: ALBUMIN 3.5 G/DL (3.2-5.2); ALKALINE PHOSPHATASE 85 U/L (35-104); ALT/SGPT 18 U/L (7.0-40); AST/SGOT 10 U/L (<34); BILIRUBIN,TOTAL 0.3 MG/DL (0.3-1.2); BLOOD UREA NITROGEN 10 MG/DL (9-23); CALCIUM LEVEL 9.2 MG/DL (8.5-10.1); CARBON DIOXIDE LEVEL 28 MMOL/L (20-31); CHLORIDE LEVEL 108 MMOL/L (98-107); CHOLESTEROL LEVEL 231 MG/DL (<200); CHOLESTEROL RISK RATIO 4.76 (<5); CREATININE FOR GFR 0.63 MG/DL (0.55-1.30); GLOMERULAR FILTRATION RATE > 60.0 (>58); GLUCOSE, FASTING 90 MG/DL (60-100); HDL CHOLESTEROL 48.5 MG/DL (>40); LDL CHOLESTEROL 164.3 MG/DL (<100); NON-HDL-C 182.5 MG/DL; POTASSIUM SERUM 4.4 MMOL/L (3.5-5.1); SODIUM LEVEL 142 MMOL/L (136-145); TOTAL PROTEIN 6.6 G/DL (5.7-8.2); TRIGLYCERIDES LEVEL 91 MG/DL (<150)
[2024-06-18 13:56] LABS: THYROID STIMULATING HORMONE 3.313 uIU/ML (0.55-4.78)
[2024-06-18 14:01] LABS: FREE T4 0.94 NG/DL (0.89-1.76)
== END ==
LOC: M SFHCADAM 07:52
PROVIDERS: ATTEND Family Medicine
DX: Z00.00 Encounter for general adult medical examination without abnormal findings (principal)

== ENCOUNTER → 2024-06-19 | Outpatient (REF) | LOC: M PLAIMG 08:49 | PROVIDERS: ATTEND Internal Medicine | DX: R52 Pain, unspecified (principal) ==

== ENCOUNTER → 2024-07-31 | Outpatient (CLI) | payer BC, MEDICARE | LOC: M CARPUL 08:01 | PROVIDERS: ATTEND Physician Assistant | DX: R06.02 Shortness of breath (principal); Q23.1 Congenital insufficiency of aortic valve; I77.810 Thoracic aortic ectasia ==

== ENCOUNTER → 2024-08-28 | Outpatient (CLI) | payer BC, MEDICARE | LOC: M WHC 07:03 | PROVIDERS: ATTEND Family Medicine | DX: Z12.31 Encounter for screening mammogram for malignant neoplasm of breast (principal) ==

== ENCOUNTER 2024-09-23 16:19 | Emergency (ER) | payer BC, MEDICARE ==
[~2024-09-23] VITALS: Ht 167.6 cm; Wt 103.1 kg
[2024-09-23 17:31] LABS: BASO % 0.5 % (0.0-1.0); EOS # 0.3 10^3/uL (0.0-0.5); EOS % 3.5 % (0.0-3.0); HEMATOCRIT 42.3 % (36.0-47.0); HEMOGLOBIN 14.3 g/dl (12.0-15.5); LYMPH # 2.7 10^3/uL (1.5-5.0); LYMPH % 32.4 % (24.0-44.0); MEAN CORPUSCULAR HEMOGLOBIN 29.9 pg (27.0-33.0); MEAN CORPUSCULAR HGB CONC 33.8 g/dl (32.0-36.5); MEAN CORPUSCULAR VOLUME 88.3 fl (80.0-96.0); MONO # 0.5 10^3/uL (0.0-0.8); MONO % 5.7 % (2.0-8.0); NEUTROPHILS # 4.8 10^3/uL (1.5-8.5); NEUTROPHILS % 57.5 % (36.0-66.0); PLATELET COUNT, AUTOMATED 284 10^3/uL (150-450); RED BLOOD COUNT 4.79 10^6/uL (4.00-5.40); WHITE BLOOD COUNT 8.3 10^3/uL (4.0-10.0)
[2024-09-23 17:56] LABS: LIPASE 30 U/L (12-53)
[2024-09-23 17:58] LABS: ALBUMIN 3.6 G/DL (3.2-5.2); ALKALINE PHOSPHATASE 78 U/L (35-104); ALT/SGPT 23 U/L (7.0-40); AST/SGOT 19 U/L (<34); BILIRUBIN,DIRECT < 0.1 MG/DL (<0.4); BILIRUBIN,TOTAL 0.5 MG/DL (0.3-1.2); BLOOD UREA NITROGEN 9 MG/DL (9-23); CALCIUM LEVEL 8.6 MG/DL (8.5-10.1); CARBON DIOXIDE LEVEL 25 MMOL/L (20-31); CHLORIDE LEVEL 106 MMOL/L (98-107); GLOMERULAR FILTRATION RATE > 60.0 (>58); GLUCOSE, FASTING 81 MG/DL (60-100); POTASSIUM SERUM 3.8 MMOL/L (3.5-5.1); SODIUM LEVEL 139 MMOL/L (136-145); TOTAL PROTEIN 6.8 G/DL (5.7-8.2)
[2024-09-23 18:03] LABS: HCG, SERUM QUALITATIVE NEGATIVE (NEGATIVE)
[2024-09-23] MEDS: KETOROLAC 30 MG/ML 1ML VIAL IV ONE (18:05)
[2024-09-23 18:37] LABS: KETONE, URINE AUTO RFX NEGATIVE (NEGATIVE); LEUKOCYTE ESTERASE UR AUTO RFX NEGATIVE (NEGATIVE); MUCUS, URINE RFX SMALL (NEGATIVE); NITRITE, URINE AUTO RFX NEGATIVE (NEGATIVE); RBC, URINE AUTO RFX 2 /HPF (0-3); SQUAM EPITHELIAL CELL UR AURFX 1 /HPF (0-6); WBC, URINE AUTO RFX 0 /HPF (0-3)
[2024-09-23] MEDS ORDERED: ISOVUE-370 76% 100ML VIAL As Ordered ONE (19:22)
[2024-09-23] MEDS: fentaNYL 100 MCG/2 ML INJECTION IV ONE (19:49)
[2024-09-23] MEDS ORDERED: PERC5TAB12 PO (21:31)
[2024-09-23 21:40] VITALS: BP 109/65; TEMP 97.6; O2SAT 98
[2024-09-23] MEDS: OXYCODONE/APAP 5MG/325MG(HOME DOSE PACK) PO ONE (21:43)
== END 2024-09-23 21:54 | disposition home or self-care (01) ==
LOC: M ED 16:19
DX: R10.31 Right lower quadrant pain (principal); N83.202 Unspecified ovarian cyst, left side; R16.0 Hepatomegaly, not elsewhere classified; K76.0 Fatty (change of) liver, not elsewhere classified; K44.9 Diaphragmatic hernia without obstruction or gangrene; E03.9 Hypothyroidism, unspecified; G43.909 Migraine, unspecified, not intractable, without status migrainosus; M54.50 Low back pain, unspecified; Z90.89 Acquired absence of other organs; Z88.8 Allergy status to other drugs, medicaments and biological substances; Z79.899 Other long term (current) drug therapy
CPT/HCPCS: 74177; 76830; 76856; 80048; 80076; 81001; 83690; 84703; 85025; 93976; 96374; 96375; 99284; J1885; J3010; Q9967

== ENCOUNTER → 2024-10-28 | Outpatient (CLI) | payer BC, MEDICARE ==
[~2024-10-28] MED LIST changes: +PERC5TAB12 PO
== END ==
LOC: M RAD 06:38
PROVIDERS: ATTEND Family Medicine
DX: R93.2 Abnormal findings on diagnostic imaging of liver and biliary tract (principal)

== ENCOUNTER → 2024-11-04 | Outpatient (CLI) | payer BC, MEDICARE | LOC: M WHC 08:02 | PROVIDERS: ATTEND Obstetrics & Gynecology | DX: N83.202 Unspecified ovarian cyst, left side (principal) ==